=== PATIENT | female | born 1990 | race African-American/Black ===

== ENCOUNTER 2023-06-10 19:30 | Emergency (ER) | payer BC, SELFPAY ==
[2023-06-10 19:57] VITALS: BP 139/76; PULSE 75; RESP 18; TEMP 36.1; O2SAT 98; BMI 38.4
--- NOTE | 2023-06-10 20:05 | ED.SKABFB ---
HPI - Skin/Abscess/Foreign Bdy General Chief complaint: Skin/Abscess/Foreign Body Stated complaint: Lump left ear Time Seen by Provider: 06/10/23 20:05 Source: patient and RN notes reviewed Mode of arrival: ambulatory Limitations: no limitations History of Present Illness HPI narrative: This is a 32-year-old female presenting to the emergency department with complaints of left ear swelling for the last several days. Patient states that on her left ear lobe she has a old piercing which she noticed a keloid on she states the area became more swollen and she attempted to squeeze it. She reports increased redness and irritation to the area. She denies any drainage or discharge. No fevers or chills. No other complaints or concerns at this time. MD complaint: abscess/boil Onset (ago): day(s) Severity: mild Quality: aching Pain Consistency: constant Relieving factors: none Exacerbating factors: none Context: none Associated symptoms: denies other symptoms Treatments prior to arrival: attempted to drain pus at home Related Data Previous Rx's Medication Instructions Recorded cephalexin 250 mg capsule 250 mg PO QID 7 days #28 caps 06/10/23 Allergies Allergy/AdvReac Type Severity Reaction Status Date / Time No Known Allergies Allergy Verified 06/10/23 19:56 Review of Systems Review of Systems: Yes all other systems are reviewed and are negative PMFSH Social History Social History Advance Directives: No Physical Exam Vital Signs: Vital Signs: Last Vital Signs Temp 96.9 F 06/10/23 19:57 Pulse 75 06/10/23 19:57 Resp 18 06/10/23 19:57 BP 139/76 06/10/23 19:57 Pulse Ox 98 06/10/23 19:57 O2 Del Method Room Air 06/10/23 19:57 BMI result Body Mass Index 38.4 Const: Other: General: Awake, alert, and oriented X3. No acute distress. HEENT: left posterior ear lobe with keloid noted with surrounding erythema and edema. No obvious drainage or bleeding. CVS: Normal heart rate and rhythm. Pulses normal. Respiratory: No respiratory distress Skin: Warm, dry, no rashes noted to exposed skin. Normal skin color. Normal skin turgor. Neuro: Oriented X 3. No motor deficit. No sensory deficit. Medical Decision Making Medical Decision Making MDM Narrative: This is a 32-year-old female presenting to the emergency department with complaints of swelling to posterior ear lobe x several days. On arrival, vital signs within normal limits. Examination consistent with keloid with surrounding cellulitic changes, will treat with oral antibiotics. Encouraged to apply warm compresses, given return precautions if any new or worsening symptoms occur. Patient understands and agrees with plan. Patient stable for discharge. Differential Diagnosis Differential Diagnoses: The differential diagnosis associated with the presentation includes Cellulitis, abscess, cyst, keloid Discharge Plan Discharge Clinical Impression: Keloid of skin Cellulitis Qualifiers: Site of cellulitis: other site Qualified Code(s): L03.818 - Cellulitis of other sites Patient Disposition: Home, Self-Care Instructions: Cellulitis (ED) Additional Instructions: You have the start of skin infection. Please take prescribed antibiotic as directed. Finish the entire course even if you are feeling better. Apply warm compresses for the next 5-6 days. If any new or worsening symptoms occur, including but not limited to worsening redness, swelling, fevers or chills, please return for re-evaluation. Prescriptions: New cephalexin 250 mg capsule 250 mg PO QID 7 Days Qty: 28 0RF Interventions: ED Discharge Assessment Last Done: 06/10/23 20:18 Discharge Date/Time: 06/10/23 20:33
== END 2023-06-10 20:33 | disposition home or self-care (01) ==
LOC: HO.ED 20:26
PROVIDERS: Emergency Provider Internal Medicine
DX: L91.0 Hypertrophic scar (principal); L03.818 Cellulitis of other sites
CPT/HCPCS: 99282; 99283